=== PATIENT | male | born 1940 | race Caucasian/White ===

== ENCOUNTER → 2017-01-22 | Outpatient (CLI) | payer OTHER | END | disposition home or self-care (01) | LOC: PCVCIMAG 08:47 | PROVIDERS: ATTEND Internal Medicine | DX: I65.23 Occlusion and stenosis of bilateral carotid arteries (principal); E78.5 Hyperlipidemia, unspecified; I10 Essential (primary) hypertension; Z95.1 Presence of aortocoronary bypass graft | CPT/HCPCS: 80061; 93005; 93880; G0463 ==

== ENCOUNTER → 2017-07-28 | Outpatient (CLI) | payer OTHER | END | disposition home or self-care (01) | LOC: PCVCCLINIC 09:51 | PROVIDERS: ATTEND Internal Medicine | DX: I25.810 Atherosclerosis of coronary artery bypass graft(s) without angina pectoris (principal); I35.0 Nonrheumatic aortic (valve) stenosis; I77.9 Disorder of arteries and arterioles, unspecified; I10 Essential (primary) hypertension; I73.9 Peripheral vascular disease, unspecified; E78.5 Hyperlipidemia, unspecified; Z79.899 Other long term (current) drug therapy; Z79.82 Long term (current) use of aspirin; Z87.891 Personal history of nicotine dependence | CPT/HCPCS: 80061; 93005; G0463 ==

== ENCOUNTER → 2018-01-25 | Outpatient (CLI) | payer OTHER | LOC: PCVCCLINIC 11:03 | DX: I25.810 Atherosclerosis of coronary artery bypass graft(s) without angina pectoris (principal); I65.23 Occlusion and stenosis of bilateral carotid arteries; I10 Essential (primary) hypertension; E78.5 Hyperlipidemia, unspecified; I73.9 Peripheral vascular disease, unspecified; I35.0 Nonrheumatic aortic (valve) stenosis; Z87.891 Personal history of nicotine dependence; Z79.899 Other long term (current) drug therapy; Z79.82 Long term (current) use of aspirin | CPT/HCPCS: 80061; 93005; G0463 ==

== ENCOUNTER → 2018-08-05 | Outpatient (CLI) | payer OTHER ==
--- NOTE | 2018-08-05 13:00 | PCVCIMAG ---
APPROVED REPORT Study performed: 08/05/2018 11:24:22 Exam: Stress Echocardiogram Indication: CAD s/p CABG Patient Location: Echo lab Stress Nurse: Bettina Corey RN Status: routine Ht: 5 ft 8 in HR: 88 bpm BP: 142/70 mmHg Rhythm: NSR Medical History Medical History: CAD s/p CABG, Hyperlipidemia, HTN, PVD Procedure The patient underwent an Exercise Stress Test using the Pino Protocol. Blood pressure, heart rate, and EKG were monitored. An Echocardiogram was performed by retail service technician in four stages in quad fashion. At peak stress, four selected images were obtained and placed side by side with resting images for comparison. Stress Test Details Stress Test: Exercise stress testing was performed using a Pino protocol. HR Resting HR: 88 bpmMax Heart Rate (APMHR): 145 bpm Max HR Achieved: 150 bpmTarget HR (85% APMHR): 123 bpm % of APMHR: 103 Recovery HR: 98 bpm HR response to stress: Normal HR response to stress BP Resting BP: 142/70 mmHg Max BP: 180/70 mmHg Recovery BP: 152/74 mmHg BP response to stress: Normal blood pressure response to stress. ECG Resting ECG: Sinus Rhythm Stress ECG: Sinus Rhythm ST Change: Nondiagnostic ST abnormalities Maximum ST Deviation: 0.5 mm Arrhythmia: VPC's Recovery ECG: Sinus Rhythm Recovery ST Change: Nondiagnostic ST abnormalities Recovery ST Deviation: 0.5 mm Recovery Arrhythmia: None Clinical Reason for Termination: Maximal effort Exercise duration: 7 min 02 sec Highest Stage Achieved: Stage 3: 3.4 mph at 14% grade. Exercise capacity: 10.10 METs Overall Exercise Capacity for Age: Normal Angina Score: None Stress ECG Conclusion ECG: Non-ischemic Clinical: Non-ischemic Hester Treadmill Score is 4.5 which is Moderate risk. Pre-Stress Echo The resting Echocardiogram showed normal left ventricular contractility with an estimated Ejection Fraction of about >55%. Normal wall motion in all segments on baseline images. Post-Stress Echo The stress Echocardiogram showed abnormal left ventricular contractility with an estimated Ejection Fraction of about 50%. Mild global left ventricular dysfunction with mild LV enlargement post-exercise. Conclusion Clinical Response: Non-ischemic Exercise Capacity: Average Stress ECG Response: Non-ischemic Stress Echo Images: Ischemic The left ventricle is normal in size and wall thickness in both the rest and stress images. Aortic valve peak gradient is 73mmHg. Mean gradient is 45mmHg. Aortic valve area is 0.8cm2. Abnormal stress echocardiogram with maximal exercise stress; post-stress images suggest multivessel CAD vs consequences of progressive aortic stenosis. Other Information Study Quality: Adequate <Conclusion> The left ventricle is normal in size and wall thickness in both the rest and stress images. Aortic valve peak gradient is 73mmHg. Mean gradient is 45mmHg. Aortic valve area is 0.8cm2. Abnormal stress echocardiogram with maximal exercise stress; post-stress images suggest multivessel CAD vs consequences of progressive aortic stenosis.
--- NOTE | 2018-08-05 13:43 | PCVCIMAG ---
EXAM: AORTOILIAC DUPLEX INDICATION: Peripheral arterial disease FINDINGS: AORTA: Suprarenal aorta measures maximum diameter of 2.5 cm. There is not a fusiform infrarenal aortic aneurysm. The infrarenal aorta measures maximum diameter of 2.2 cm. No aortic stenosis. RIGHT COMMON ILIAC ARTERY: Maximum diameter is 1.1 cm. No significant stenosis. RIGHT EXTERNAL ILIAC ARTERY: No significant stenosis. LEFT COMMON ILIAC ARTERY: Maximum diameter is 1.2 cm. No significant stenosis. LEFT EXTERNAL ILIAC ARTERY: No significant stenosis. IMPRESSION: No abdominal aortic aneurysm. No aortoiliac stenosis seen. Previous bilateral iliac artery stents maintaining satisfactory patency. LOC:[id number]
== END | disposition home or self-care (01) ==
LOC: PCVCIMAG 09:17
PROVIDERS: ATTEND Internal Medicine
DX: I25.10 Atherosclerotic heart disease of native coronary artery without angina pectoris (principal); I73.9 Peripheral vascular disease, unspecified; I10 Essential (primary) hypertension; E78.5 Hyperlipidemia, unspecified; Z95.1 Presence of aortocoronary bypass graft; Z95.828 Presence of other vascular implants and grafts
CPT/HCPCS: 93325; 93351; 93978

== ENCOUNTER → 2018-08-20 | Outpatient (CLI) | payer OTHER ==
[~2018-08-20] MED LIST: BENZOCAINE ONE 20% MUCOSAL SPRAY.; IV NORMAL SALINE 500ML BAG 500 ML ONE; MIDAZOLAM HCL/PF 2 MG/2 ML VIAL. ONE; fentaNYL PF VIAL 100 MCG/2 ML VIAL ONE
--- NOTE | 2018-08-20 12:57 | PCVCIMAG ---
APPROVED REPORT Study performed: 08/20/2018 11:51:21 EXAM: Transesophageal Echocardiogram Patient Location: Echo lab Status: routine BSA: 2.00 HR: 100 bpmBP: 152/68 mmHg Rhythm: NSR Other Information Study Quality: Adequate Indications Aortic Valve Disease aortic stenosis 2D Dimensions LVOT Diam: 21.18 (18-24mm) Aortic Valve AoV Peak Aniket.: 3.35 m/s AO Peak Gr.: 44.97 mmHgLVOT Max P.18 mmHg AO Mean Gr.: 26.17 mmHgLVOT Mean P.30 mmHg AO V2 Mean: 2.44 m/sLVOT Max V: 1.14 m/s AO V2 VTI: 75.29 cmLVOT Mean V: 0.70 m/s SARAH (VTI): 1.14 [id number] V1 VTI: 24.41 cm SARAH Vmax: 1.20 cm2 SV (LVOT): 86.01 mL Procedure After obtaining informed consent, patient underwent transesophageal echo in the [facility] [employer] [facility]. Type of Sedation : Conscious Sedation Sedation was administered by Madison Callahan RN. Sedation start time: 1153 Case end Time: 1209 Sedation was achieved intravenously with: Versed (5 mg) Fentanyl (125 mcg) Transesophageal probe was inserted and advanced into esophagus without difficulty by Dg Maciel MD. Echo enhancement indication: R/O Septal defect. Echo enhancement agent administered: Agitated Saline The MICKEY was performed without complications. Throughout the procedure, the blood pressure, pulse oximetry, cardiac rhythm, and rate were monitored. The patient tolerated the procedure without adverse effects. Recovery from conscious sedation was uneventful and vital signs were stable. Left Ventricle The left ventricle is normal size. There is normal LV segmental wall motion. There is normal left ventricular wall thickness. Left ventricular systolic function is normal. The left ventricular ejection fraction is within the normal range. LVEF is 60-65%. Right Ventricle The right ventricle is normal size. The right ventricular systolic function is normal. Atria The left atrium size is normal. No thrombus is visualized in the left atrium or appendage. Interatrial septum is intact without evidence of ASD or PFO. Negative bubble study. The right atrium size is normal. Aortic Valve The aortic valve is mildly calcified. Leaflet mobility does not support severe aortic stenosis. Mild aortic regurgitation. There is moderate valvular aortic stenosis. Calculated aortic valve area is 1.2 cm2 with maximum pressure gradient of 45 mmHg and mean pressure gradient of 26 mmHg. Mitral Valve The mitral valve is normal in structure. Mild mitral regurgitation. No evidence of mitral valve stenosis. Tricuspid Valve The tricuspid valve is normal in structure. There is no tricuspid valve regurgitation noted. Pulmonic Valve The pulmonary valve is normal in structure. There is no pulmonic valvular regurgitation. Great Vessels The aortic root is normal in size. IVC is normal in size and collapses >50% with inspiration. Pericardium There is no pericardial effusion. <Conclusion> Left ventricular systolic function is normal. There is normal LV segmental wall motion. LVEF is 60-65%. Interatrial septum is intact without evidence of ASD or PFO. Negative bubble study. No thrombus is visualized in the left atrium or appendage. The aortic valve is mildly calcified. Leaflet mobility does not support severe aortic stenosis. There is moderate valvular aortic stenosis. Calculated aortic valve area is 1.2 cm2 (maximum pressure gradient of 45 mmHg, mean pressure gradient of 26 mmHg). Mild aortic regurgitation. There is no pericardial effusion.
== END | disposition home or self-care (01) ==
LOC: PCVCINTER 12:04
PROVIDERS: ATTEND Internal Medicine
DX: I08.0 Rheumatic disorders of both mitral and aortic valves (principal); I25.10 Atherosclerotic heart disease of native coronary artery without angina pectoris; I10 Essential (primary) hypertension; E78.00 Pure hypercholesterolemia, unspecified; Z79.82 Long term (current) use of aspirin; Z79.899 Other long term (current) drug therapy
CPT/HCPCS: 93312; 93325; 99152; J2250; J3010; J7040

== ENCOUNTER → 2019-02-17 | Outpatient (CLI) | payer OTHER ==
--- NOTE | 2019-02-17 16:57 | PCVCIMAG ---
APPROVED REPORT Study performed: 02/17/2019 13:01:19 EXAM: Comprehensive 2D, Doppler, and color-flow Echocardiogram Patient Location: Echo lab Status: routine BSA: 1.98 HR: 67 bpmBP: 134/78 mmHg Rhythm: NSR Other Information Study Quality: Adequate Indications CAD Aortic Stenosis 2D Dimensions IVSd: 12.73 (7-11mm)LVOT Diam: 20.29 (18-24mm) LVDd: 39.84 mm PWd: 10.86 (7-11mm)Ascending Ao: 30.05 (22-36mm) LVDs: 30.81 (25-40mm) Left Atrium: 39.97 (27-40mm) Aortic Root: 24.51 mm LV Single Plane 4CH: 54.25 % LV Single Plane 2CH: 64.89 % Biplane EF: 59.8 % Volumes Left Atrial Volume (Systole) Single Plane 4CH: 43.55 mLSingle Plane 2CH: 42.27 mL LA ESV Index: 23.00 mL/m2 Aortic Valve AoV Peak Aniket.: 4.40 m/s AO Peak Gr.: 77.54 mmHgLVOT Max P.66 mmHg AO Mean Gr.: 43.37 mmHgLVOT Mean P.80 mmHg AO V2 Mean: 3.17 m/sLVOT Max V: 1.19 m/s AO V2 VTI: 111.48 cmLVOT Mean V: 0.79 m/s SARAH (VTI): 0.75 [id number] V1 VTI: 25.87 cm SARAH Vmax: 0.87 cm2 SV (LVOT): 83.57 mL Mitral Valve E/A Ratio: 1.5 MV Decel. Time: 125.61 ms MV E Max Aniket.: 1.42 m/s MV A Aniket.: 0.97 m/s TDI E/Lateral E': 14.20E/Medial E': 20.29 Medial E' Aniket.: 0.07 m/s Lateral E' Aniket.: 0.10 m/s Pulmonary Valve PV Peak Gr.: 4.53 mmHg Pulmonary Vein P Vein S: 0.70 m/sP Vein A: 0.39 m/s P Vein D: 1.11 m/sP Vein A Dur.: 72.7 msec P Vein S/D Ratio: 0.63 Tricuspid Valve TR Peak Aniket.: 3.00 m/s TR Peak Gr.: 36.02 mmHg Left Ventricle The left ventricle is normal size. There is normal LV segmental wall motion. Mild concentric left ventricular hypertrophy. Left ventricular systolic function is normal. The left ventricular ejection fraction is within the normal range. LVEF is 55-60%. The left ventricular diastolic function is normal. Right Ventricle The right ventricle is normal size. The right ventricular systolic function is normal. Atria The left atrium size is normal. The right atrium size is normal. Aortic Valve Aortic valve leaflets are moderately calcified Trace aortic regurgitation. Peak Aortic gradient is 78mmHg. Mean gradient is 44mmHg. Mitral Valve Mild mitral annular calcification There is no mitral valve regurgitation noted. No evidence of mitral valve stenosis. Tricuspid Valve The tricuspid valve is normal in structure. Trace to mild tricuspid regurgitation. Pulmonary artery pressure is 43mmHg. Pulmonic Valve The pulmonary valve is normal in structure. There is no pulmonic valvular regurgitation. Great Vessels The aortic root is normal in size. IVC is normal in size and collapses >50% with inspiration. Pericardium There is no pericardial effusion. <Conclusion> Left ventricular systolic function is normal. There is normal LV segmental wall motion. LVEF is 55-60%. Aortic valve leaflets are moderately calcified, moderate to severe stenosis Peak Aortic gradient is 78mmHg. Mean gradient is 44mmHg. Trace aortic regurgitation. Mild mitral annular calcification. No mitral valve regurgitation noted. Trace to mild tricuspid regurgitation. Pulmonary artery pressure of 43mmHg. There is no pericardial effusion.
== END | disposition home or self-care (01) ==
LOC: PCVCIMAG 12:46
PROVIDERS: ATTEND Internal Medicine
DX: I35.0 Nonrheumatic aortic (valve) stenosis (principal); I25.810 Atherosclerosis of coronary artery bypass graft(s) without angina pectoris; Z87.891 Personal history of nicotine dependence
CPT/HCPCS: 93306